=== PATIENT | female | born 1965 | race African-American/Black ===

== ENCOUNTER → 2019-10-28 | Outpatient (CLI) | payer OTHER ==
[~2019-10-28] MED LIST: COLACE100 MG PO; LEVOTHYROXIN0.175 MG PO; MAGOX 400400 MG PO
== END ==
LOC: LAB 14:28
PROVIDERS: ATTEND Internal Medicine
DX: Z03.818 Encounter for observation for suspected exposure to other biological agents ruled out (principal)